=== PATIENT | female | born 1950 | race Caucasian/White ===

== ENCOUNTER 2017-09-18 10:09 | Inpatient (IN) | payer OTHER, MEDICAID ==
[~2017-09-18] VITALS: Ht 162.6 cm; Wt 67.1 kg
[2017-09-18] MEDS ORDERED: NACL 0.9% 1,000 ML IV SCH (10:13)
[2017-09-18 10:15] VITALS: BP 105/42
[2017-09-18] MEDS ORDERED: AMIO200T2 PO (10:50)
[2017-09-18] MEDS ORDERED: SODIUM BICARBONATE 8.4% 50 MEQ in NACL 0.9% 1,000 ML IV SCH (10:50)
[2017-09-18] MEDS ORDERED: AMLO-27 PO (10:52)
[2017-09-18] MEDS ORDERED: ASPI81CT89 PO (10:53)
[2017-09-18] MEDS ORDERED: ATOR40TA PO (10:54)
[2017-09-18] MEDS ORDERED: GABA100C PO (10:55)
[2017-09-18] MEDS ORDERED: SODIUM BICARBONATE 8.4% 50 MEQ/50 ML VIAL ONE (10:56)
[2017-09-18] MEDS ORDERED: GLIP5TAB4 PO (10:56)
[2017-09-18] MEDS ORDERED: LISI5TAB18 PO (10:57)
[2017-09-18] MEDS ORDERED: VITA1TAB44 PO (10:58)
[2017-09-18] MEDS ORDERED: CARV3.12 PO (11:03)
[2017-09-18] MEDS ORDERED: SEVE800T6 PO (11:03)
[2017-09-18] MEDS ORDERED: WARF2TAB79 PO (11:04)
[2017-09-18 11:11] LABS: BASOPHILS # (AUTO) 0.2 K/uL (0.00-0.22); BASOPHILS % (AUTO) 2.3 % (0.0-2.0); EOSINOPHILS # (AUTO) 0.3 K/uL (0-0.4); EOSINOPHILS % (AUTO) 2.8 % (0.0-4.0); HEMATOCRIT 38.7 % (36-48); HEMOGLOBIN 12.5 g/dL (12.0-16.0); LYMPHOCYTES # (AUTO) 1.9 K/uL (2.5-16.5); LYMPHOCYTES % (AUTO) 21.3 % (20.5-51.1); MEAN CORPUSCULAR HEMOGLOBIN 32 pg (27-31); MEAN CORPUSCULAR HGB CONC 32 g/dL (33-37); MEAN CORPUSCULAR VOLUME 98.9 fL (80-94); MONOCYTES # (AUTO) 0.7 K/uL (0.8-1.0); MONOCYTES % (AUTO) 7.8 % (1.7-9.3); NEUTROPHILS # (AUTO) 5.8 K/uL (1.8-7.7); NEUTROPHILS % (AUTO) 65.8 % (42.2-75.2); PLATELET COUNT (AUTO) 179 K/uL (140-450); RED BLOOD CELL COUNT(AUTO) 3.92 MIL/uL (4.20-5.40); RED CELL DISTRIBUTION WIDTH 15.6 % (11.6-13.7); WHITE BLOOD COUNT (AUTO) 8.9 K/uL (4.8-10.8)
[2017-09-18 11:24] LABS: PROTHROMBIN TIME 27.4 secs (10.8-13.4)
[2017-09-18 11:27] LABS: ALBUMIN 3.6 g/dL (3.4-5.0); ANION GAP 12.9 (8-16); CARBON DIOXIDE 31.4 mmol/L (21-32); TOTAL BILIRUBIN 0.5 mg/dL (0.0-1.0)
[2017-09-18 11:30] LABS: CREATININE 7.5 mg/dL (0.6-1.3)
[2017-09-18 11:31] LABS: POTASSIUM 6.3 mmol/L (3.5-5.1)
[2017-09-18] MEDS ORDERED: INSULIN REGULAR, HUMAN 100 UNIT/ML VIAL SUBQ ONE (11:35)
[2017-09-18] MEDS ORDERED: DEXTROSE 50% 50 ML SYR IVP ONE (11:35)
[2017-09-18 11:43] LABS: ACETAMINOPHEN < 0.5 ug/ml (10-30); SALICYLATE < 2.8 mg/dL (2.8-20.0)
[2017-09-18] MEDS ORDERED: HYDROcodone/APAP 5/325 MG 1 TAB TAB PO PRN (12:50)
[2017-09-18] MEDS ORDERED: LORazepam 2 MG/ML VIAL IVP PRN (12:50)
[2017-09-18] MEDS ORDERED: ACETAMINOPHEN 325 MG TAB PO PRN (12:50)
[2017-09-18] MEDS ORDERED: ATROPINE 0.4 MG/ML VIAL IVP ONE (12:50)
[2017-09-18] MEDS ORDERED: ONDANSETRON 4 MG/2 ML VIAL IVP PRN (12:50)
[2017-09-18] MEDS: SEVELAMER CARBONATE 800 MG TAB PO SCH ×2 (13:00→19:05)
[2017-09-18] MEDS ORDERED: ATROPINE 0.5 MG/5 ML SYR IVP SCH (13:00)
[2017-09-18] MEDS ORDERED: amLODIPine 5 MG TAB PO SCH (14:00)
[2017-09-18] MEDS: DEXTROSE 50% 50 ML SYR IVP PRN (15:58)
[2017-09-18] MEDS: BLOOD GLUCOSE MONITORING 1 DEV DEV FS SCH ×2 (16:30→20:18)
[2017-09-18 18:10] VITALS: BP 154/69
[2017-09-18 20:00] VITALS: BP 121/71
[2017-09-18] MEDS: GABAPENTIN 100 MG CAP PO SCH (20:18)
[2017-09-18 20:26] LABS: CREATINE KINASE MB 2.1 ng/mL (0-3.6)
[2017-09-18] MEDS ORDERED: CARVEDILOL 3.125 MG TAB PO SCH (21:00)
[2017-09-18 22:00] VITALS: BP 140/83
[2017-09-19] VITALS (11 sets, daily range): BP systolic 139–177; BP diastolic 53–106
[2017-09-19 06:19] LABS: PROTHROMBIN TIME 29.9 secs (10.8-13.4)
[2017-09-19] MEDS: BLOOD GLUCOSE MONITORING 1 DEV DEV FS SCH ×4 (06:36→20:34)
[2017-09-19 06:41] LABS: ANION GAP 13.7 (8-16); CARBON DIOXIDE 30.9 mmol/L (21-32); POTASSIUM 5.6 mmol/L (3.5-5.1)
[2017-09-19 06:43] LABS: CREATININE 8.6 mg/dL (0.6-1.3); TOTAL BILIRUBIN 0.5 mg/dL (0.0-1.0)
[2017-09-19 06:44] LABS: ALBUMIN 3.2 g/dL (3.4-5.0)
[2017-09-19 06:45] LABS: MAGNESIUM 4.2 mg/dL (1.8-2.4)
[2017-09-19 06:50] LABS: BASOPHILS # (AUTO) 0.3 K/uL (0.00-0.22); BASOPHILS % (AUTO) 2.6 % (0.0-2.0); EOSINOPHILS # (AUTO) 0.4 K/uL (0-0.4); EOSINOPHILS % (AUTO) 3.7 % (0.0-4.0); HEMATOCRIT 35.1 % (36-48); HEMOGLOBIN 11.6 g/dL (12.0-16.0); LYMPHOCYTES # (AUTO) 2.2 K/uL (2.5-16.5); LYMPHOCYTES % (AUTO) 22.4 % (20.5-51.1); MEAN CORPUSCULAR HEMOGLOBIN 33 pg (27-31); MEAN CORPUSCULAR HGB CONC 33 g/dL (33-37); MEAN CORPUSCULAR VOLUME 98.2 fL (80-94); MONOCYTES # (AUTO) 0.8 K/uL (0.8-1.0); MONOCYTES % (AUTO) 8.6 % (1.7-9.3); NEUTROPHILS # (AUTO) 6.1 K/uL (1.8-7.7); NEUTROPHILS % (AUTO) 62.7 % (42.2-75.2); PLATELET COUNT (AUTO) 145 K/uL (140-450); RED BLOOD CELL COUNT(AUTO) 3.57 MIL/uL (4.20-5.40); RED CELL DISTRIBUTION WIDTH 14.8 % (11.6-13.7); WHITE BLOOD COUNT (AUTO) 9.8 K/uL (4.8-10.8)
[2017-09-19 06:54] LABS: FREE T4 (FREE THYROXINE) 1.09 ng/dL (0.76-1.46); THYROID STIMULATING HORMONE 1.89 uIU/mL (0.34-3.74)
[2017-09-19] MEDS ORDERED: CALCIUM CHLORIDE 10% 100 MG/ML SYR IVP SCH (07:30)
[2017-09-19] MEDS ORDERED: CALCIUM CHLORIDE 10% 1,000 MG in NACL 0.9% 100 ML IV SCH (08:00)
[2017-09-19] MEDS ORDERED: AMIODARONE 200 MG TAB PO SCH (09:00)
[2017-09-19] MEDS: glipiZIDE 5 MG TAB PO SCH (09:35)
[2017-09-19] MEDS: ATORVASTATIN 20 MG TAB PO SCH (09:36)
[2017-09-19] MEDS: VIT-B COMP/VIT-C/FOLIC ACID 1 TAB PO SCH (09:36)
[2017-09-19] MEDS: amLODIPine 5 MG TAB PO SCH (09:36)
[2017-09-19] MEDS: GABAPENTIN 100 MG CAP PO SCH ×2 (09:36→20:38)
[2017-09-19] MEDS: SEVELAMER CARBONATE 800 MG TAB PO SCH ×3 (09:36→17:00)
[2017-09-19] MEDS: ASPIRIN 81 MG TAB.CHEW PO SCH (09:37)
[2017-09-19] MEDS: CALCIUM ACETATE 667 MG TAB PO SCH ×2 (13:22→17:00)
[2017-09-19 14:25] LABS: CREATINE KINASE MB 1.6 ng/mL (0-3.6)
[2017-09-19] MEDS ORDERED: WARFARIN 1 MG TAB PO SCH ×2 (17:00)
[2017-09-19] MEDS: INSULIN LISPRO SLIDING SCALE 100 UNITS/ML VIAL SUBQ PRN (20:37)
[2017-09-20] VITALS: BP 147/80
[2017-09-20] MEDS: DEXTROSE 50% 50 ML SYR IVP PRN (00:13)
[2017-09-20 04:00] VITALS: BP 155/62
[2017-09-20 05:54] LABS: LYMPHOCYTES # (AUTO) 1.2 K/uL (2.5-16.5); LYMPHOCYTES % (AUTO) 12.7 % (20.5-51.1); MONOCYTES # (AUTO) 0.8 K/uL (0.8-1.0)
[2017-09-20 06:00] LABS: ANION GAP 11.8 (8-16); CARBON DIOXIDE 28.4 mmol/L (21-32); POTASSIUM 4.2 mmol/L (3.5-5.1)
[2017-09-20 06:09] LABS: MAGNESIUM 3.4 mg/dL (1.8-2.4); PHOSPHORUS 5.4 mg/dL (2.5-4.9)
[2017-09-20 06:17] LABS: BASOPHILS # (AUTO) 0.2 K/uL (0.00-0.22); BASOPHILS % (AUTO) 2.4 % (0.0-2.0); EOSINOPHILS # (AUTO) 0.3 K/uL (0-0.4); EOSINOPHILS % (AUTO) 2.9 % (0.0-4.0); HEMATOCRIT 37.2 % (36-48); HEMOGLOBIN 12.1 g/dL (12.0-16.0); MEAN CORPUSCULAR HEMOGLOBIN 32 pg (27-31); MEAN CORPUSCULAR HGB CONC 33 g/dL (33-37); MEAN CORPUSCULAR VOLUME 98.8 fL (80-94); MONOCYTES % (AUTO) 8.5 % (1.7-9.3); NEUTROPHILS # (AUTO) 6.6 K/uL (1.8-7.7); NEUTROPHILS % (AUTO) 73.5 % (42.2-75.2); PLATELET COUNT (AUTO) 153 K/uL (140-450); RED BLOOD CELL COUNT(AUTO) 3.77 MIL/uL (4.20-5.40); RED CELL DISTRIBUTION WIDTH 14.7 % (11.6-13.7); WHITE BLOOD COUNT (AUTO) 9.1 K/uL (4.8-10.8)
[2017-09-20 06:34] LABS: CREATININE 6.5 mg/dL (0.6-1.3)
[2017-09-20] MEDS: BLOOD GLUCOSE MONITORING 1 DEV DEV FS SCH ×5 (06:52→21:30)
[2017-09-20 08:00] VITALS: BP 150/60
[2017-09-20 08:19] LABS: HEPATITIS A ANTIBODY IGM Negative (Negative); HEPATITIS B CORE AB TOTAL Negative (Negative); HEPATITIS B SURFACE ANTIBODY Reactive (.); HEPATITIS B SURFACE ANTIGEN Negative (Negative)
[2017-09-20] MEDS: CALCIUM ACETATE 667 MG TAB PO SCH ×3 (08:28→17:01)
[2017-09-20] MEDS: ASPIRIN 81 MG TAB.CHEW PO SCH (08:42)
[2017-09-20] MEDS: glipiZIDE 5 MG TAB PO SCH (08:42)
[2017-09-20] MEDS: ATORVASTATIN 20 MG TAB PO SCH (08:43)
[2017-09-20] MEDS: VIT-B COMP/VIT-C/FOLIC ACID 1 TAB PO SCH (08:43)
[2017-09-20] MEDS: GABAPENTIN 100 MG CAP PO SCH ×2 (08:44→21:38)
[2017-09-20] MEDS: amLODIPine 5 MG TAB PO SCH (08:45)
[2017-09-20] MEDS: SEVELAMER CARBONATE 800 MG TAB PO SCH ×3 (08:45→17:02)
[2017-09-20 12:00] VITALS: BP 144/60
[2017-09-20] MEDS: INSULIN LISPRO SLIDING SCALE 100 UNITS/ML VIAL SUBQ PRN ×2 (12:26→21:34)
[2017-09-20] MEDS: NACL 0.9% IRR 250 ML BOTTLE IR SCH (13:00)
[2017-09-20 16:00] VITALS: BP 142/48
[2017-09-20] MEDS: WARFARIN 1 MG TAB PO SCH (17:01)
[2017-09-20 20:00] VITALS: BP 151/54
[2017-09-21] VITALS: BP 157/57
[2017-09-21] MEDS: NACL 0.9% IRR 250 ML BOTTLE IR SCH ×2 (01:00→13:00)
[2017-09-21 04:00] VITALS: BP 157/62
[2017-09-21] MEDS: BLOOD GLUCOSE MONITORING 1 DEV DEV FS SCH ×3 (06:46→16:30)
[2017-09-21 07:07] LABS: BASOPHILS # (AUTO) 0.3 K/uL (0.00-0.22); BASOPHILS % (AUTO) 2.6 % (0.0-2.0); EOSINOPHILS # (AUTO) 0.4 K/uL (0-0.4); EOSINOPHILS % (AUTO) 4.3 % (0.0-4.0); HEMOGLOBIN 12.7 g/dL (12.0-16.0); LYMPHOCYTES # (AUTO) 1.5 K/uL (2.5-16.5); LYMPHOCYTES % (AUTO) 14.5 % (20.5-51.1); MEAN CORPUSCULAR HEMOGLOBIN 33 pg (27-31); MEAN CORPUSCULAR HGB CONC 33 g/dL (33-37); MEAN CORPUSCULAR VOLUME 97.6 fL (80-94); MONOCYTES # (AUTO) 0.8 K/uL (0.8-1.0); MONOCYTES % (AUTO) 8.3 % (1.7-9.3); NEUTROPHILS # (AUTO) 7.1 K/uL (1.8-7.7); NEUTROPHILS % (AUTO) 70.3 % (42.2-75.2); PLATELET COUNT (AUTO) 166 K/uL (140-450); RED CELL DISTRIBUTION WIDTH 14.3 % (11.6-13.7); WHITE BLOOD COUNT (AUTO) 10.1 K/uL (4.8-10.8)
[2017-09-21 07:32] LABS: MAGNESIUM 3.6 mg/dL (1.8-2.4); PHOSPHORUS 5.4 mg/dL (2.5-4.9)
[2017-09-21 08:00] VITALS: BP 150/56
[2017-09-21] MEDS: VIT-B COMP/VIT-C/FOLIC ACID 1 TAB PO SCH (08:20)
[2017-09-21] MEDS: glipiZIDE 5 MG TAB PO SCH (08:20)
[2017-09-21] MEDS: CALCIUM ACETATE 667 MG TAB PO SCH ×3 (08:20→17:30)
[2017-09-21] MEDS: GABAPENTIN 100 MG CAP PO SCH (08:21)
[2017-09-21] MEDS: ASPIRIN 81 MG TAB.CHEW PO SCH (08:21)
[2017-09-21] MEDS: SEVELAMER CARBONATE 800 MG TAB PO SCH ×3 (08:21→17:29)
[2017-09-21] MEDS: ATORVASTATIN 20 MG TAB PO SCH (08:29)
[2017-09-21] MEDS: amLODIPine 5 MG TAB PO SCH (08:34)
[2017-09-21 08:42] LABS: ANION GAP 18.6 (8-16); CARBON DIOXIDE 25.1 mmol/L (21-32); POTASSIUM 4.7 mmol/L (3.5-5.1)
[2017-09-21 08:50] LABS: CREATININE 8.2 mg/dL (0.6-1.3)
[2017-09-21 09:05] LABS: PROTHROMBIN TIME 18.1 secs (10.8-13.4)
[2017-09-21 12:00] VITALS: BP 139/58
[2017-09-21] MEDS: INSULIN LISPRO SLIDING SCALE 100 UNITS/ML VIAL SUBQ PRN (12:35)
[2017-09-21] MEDS ORDERED: PHO667 PO (13:28)
[2017-09-21] MEDS: WARFARIN 1 MG TAB PO SCH (17:33)
== END 2017-09-21 19:20 | disposition home or self-care (01) | DRG 291 ==
LOC: MED 10:09 → MTU 12:54 → MIC 18:05 → MTU 09-20 06:05
PROVIDERS: ADMIT Preventive Medicine Preventive Medicine/Occupational Environmental Medicine; ATTEND Preventive Medicine Preventive Medicine/Occupational Environmental Medicine
PROC: 5A1D70Z Performance of Urinary Filtration, Intermittent, Less than 6 Hours Per Day (ICD-10-PCS; principal; 2017-09-19)
PROC: 5A1D70Z Performance of Urinary Filtration, Intermittent, Less than 6 Hours Per Day (ICD-10-PCS; 2017-09-21)
DX: I13.2 Hypertensive heart and chronic kidney disease with heart failure and with stage 5 chronic kidney disease, or end stage renal disease (principal); I50.43 Acute on chronic combined systolic (congestive) and diastolic (congestive) heart failure; E11.22 Type 2 diabetes mellitus with diabetic chronic kidney disease; E11.42 Type 2 diabetes mellitus with diabetic polyneuropathy; I07.1 Rheumatic tricuspid insufficiency; E83.39 Other disorders of phosphorus metabolism; N18.6 End stage renal disease; I42.9 Cardiomyopathy, unspecified; E87.5 Hyperkalemia; I48.0 Paroxysmal atrial fibrillation; E87.8 Other disorders of electrolyte and fluid balance, not elsewhere classified; I27.20 Pulmonary hypertension, unspecified; E11.65 Type 2 diabetes mellitus with hyperglycemia; E83.41 Hypermagnesemia; I35.8 Other nonrheumatic aortic valve disorders; R74.8 Abnormal levels of other serum enzymes; I25.9 Chronic ischemic heart disease, unspecified; E78.5 Hyperlipidemia, unspecified; R00.1 Bradycardia, unspecified; I25.10 Atherosclerotic heart disease of native coronary artery without angina pectoris; Z99.2 Dependence on renal dialysis; Z79.01 Long term (current) use of anticoagulants; Z88.5 Allergy status to narcotic agent
CPT/HCPCS: 36415; 70450; 71045; 80048; 80053; 82550; 82553; 82948; 83605; 83735; 83880; 84100; 84132; 84439; 84443; 84484; 85025; 85610; 85730; 86704; 86706; 86708; 86709; 86803; 87040; 87081; 87340; 90935; 93005; 96374; 96375; 99291; G0480; G0482; J0461; J1815; J3490; J7030; Q0092